=== PATIENT | female | born 2000 | race African-American/Black ===

== ENCOUNTER 2024-01-23 19:23 | Emergency (ER) | payer MEDICAID ==
[~2024-01-23] VITALS: Ht 157.5 cm; Wt 63.5 kg
[2024-01-23 20:17] VITALS: BP_SYST 112; PULSE 78; RESP 20; TEMP 97.8; O2SAT 100
[2024-01-23] MEDS: predniSONE 20 MG TABLET PO ONE (23:05)
[2024-01-23] MEDS: IPRATROPIUM/ALBUTEROL SULFATE 3 ML AMPUL.NEB (DUONEB) INH ONE (23:09)
[2024-01-23] MEDS ORDERED: METH-776 PO (23:14)
[2024-01-23] MEDS ORDERED: AUG875 PO (23:14)
[2024-01-23] MEDS ORDERED: ALBMDI INH (23:14)
[2024-01-23 23:20] VITALS: BP_SYST 115; PULSE 79; RESP 18; TEMP 97.8; O2SAT 98
== END 2024-01-23 23:20 | disposition home or self-care (01) ==
LOC: SED 19:23
DX: J45.909 Unspecified asthma, uncomplicated (principal)
CPT/HCPCS: 99283; 94640; J7512